=== PATIENT | female | born 1975 | race Caucasian/White ===

== ENCOUNTER 2021-05-20 10:40 | Emergency (ER) | payer SELFPAY ==
[2021-05-20 10:41] VITALS: BP 129/88; PULSE 78; RESP 18; TEMP 36.6; O2SAT 99; BMI 32.9
--- NOTE | 2021-05-20 11:00 | XR_ITS ---
PROCEDURE INFORMATION: Exam: XR Right Elbow Exam date and time: 05/20/2021 11:00 AM Age: 46 years old Clinical indication: Injury or trauma; Fall; Blunt trauma (contusions or hematomas); Elbow; Right TECHNIQUE: Imaging protocol: XR Right elbow. Views: 3 or more views. COMPARISON: No relevant prior studies available. FINDINGS: Bones/joints: Prominent anterior fat pad suggesting the possibility of an effusion. No definite fracture is identified. IMPRESSION: Prominent anterior fat pad suggesting the possibility of an effusion. No definite fracture is identified.
--- NOTE | 2021-05-20 11:00 | XR_ITS ---
PROCEDURE INFORMATION: Exam: XR Right Knee Exam date and time: 05/20/2021 11:00 AM Age: 46 years old Clinical indication: Injury or trauma; Fall; Blunt trauma; Knee; Right; Additional info: Fall, RT anterior knee pain TECHNIQUE: Imaging protocol: XR Right knee. Views: 3 views. COMPARISON: CR [id number] XR knee RT 3V 01/10/2018 10:40 AM FINDINGS: Bones/joints: Chronic changes involving the lateral femoral condyle and patella which may represent remote trauma. Patellofemoral osteophytes are present. Irregularity of the medial tibial plateau which appears to be chronic. IMPRESSION: No definite evidence of acute abnormality involving the right knee. Chronic changes as described above.
--- NOTE | 2021-05-20 11:00 | XR_ITS ---
PROCEDURE INFORMATION: Exam: XR Right Shoulder Exam date and time: 05/20/2021 11:00 AM Age: 46 years old Clinical indication: Injury or trauma; Fall; Blunt trauma (contusions or hematomas); Shoulder; Right TECHNIQUE: Imaging protocol: XR Right shoulder. Views: 2 or more views. COMPARISON: CR XR CHEST 2V 12/25/2019 7:29 PM FINDINGS: Bones/joints: Normal. Soft tissues: Normal. IMPRESSION: No acute findings involving the right shoulder.
--- NOTE | 2021-05-20 11:43 | HMH.EDUTC ---
[facility] [place] Clinical Impression: Right knee injury Qualifiers: Encounter type: initial encounter Qualified Code(s): S89.91XA - Unspecified injury of right lower leg, initial encounter Injury of right elbow Qualifiers: Encounter type: initial encounter Qualified Code(s): S59.901A - Unspecified injury of right elbow, initial encounter Right shoulder pain Qualifiers: Chronicity: acute Qualified Code(s): M25.511 - Pain in right shoulder Disposition: Home, Self-Care Condition on Discharge: Good Instructions: DI for Knee Pain Additional Instructions: Your Xrays were negative for fractures, but that does not rule out injuries to ligaments and tendons. Follow up with PCP if not improving for additional tests. Prescriptions: Naproxen [Naproxen 500mg tab] 500 mg PO BID 10 Days #20 tab Transmission Status: Pending to [facility] Referrals: Oscar Richardson APRN [Nurse Practitioner] - Forms: Work/School Release Time of Disposition: 12:22 Medical Decision Making - Samuel Inquiry Pt receiving controlled substance: No Vital Signs: 05/20/21 10:41 Temperature 97.9 F Temperature Source Oral Pulse Rate [Left Radial] 78 Respiratory Rate 18 Blood Pressure [Right Arm] 129/88 Blood Pressure Mean [Right Arm] 101 Blood Pressure Source [Right Arm] Automatic Cuff Blood Pressure Position [Right Arm] Sitting 02 Sat by Pulse Oximetry 99 Oxygen Delivery Method Room Air - Radiology Data #1 Image(s): Knee Image Reviewed: Yes I have reviewed radiologist's interpretation Preliminary Findings: Normal/NAD, No Fracture Seen PROCEDURE INFORMATION: Exam: XR Right Knee Exam date and time: 05/20/2021 11:00 AM Age: 46 years old Clinical indication: Injury or trauma; Fall; Blunt trauma; Knee; Right; Additional info: Fall, RT anterior knee pain TECHNIQUE: Imaging protocol: XR Right knee. Views: 3 views. COMPARISON: CR [id number] XR knee RT 3V 01/10/2018 10:40 AM FINDINGS: Bones/joints: Chronic changes involving the lateral femoral condyle and patella which may represent remote trauma. Patellofemoral osteophytes are present. Irregularity of the medial tibial plateau which appears to be chronic. IMPRESSION: No definite evidence of acute abnormality involving the right knee. Chronic changes as described above. #2 Image(s): Elbow Image Reviewed: Yes I have reviewed radiologist's interpretation Preliminary Findings: Normal/NAD, No Fracture Seen Age: 46 years old Clinical indication: Injury or trauma; Fall; Blunt trauma (contusions or hematomas); Elbow; Right TECHNIQUE: Imaging protocol: XR Right elbow. Views: 3 or more views. COMPARISON: No relevant prior studies available. FINDINGS: Bones/joints: Prominent anterior fat pad suggesting the possibility of an effusion. No definite fracture is identified. IMPRESSION: Prominent anterior fat pad suggesting the possibility of an effusion. No definite fracture is identified. #3 Image(s): Shoulder Image Reviewed: Yes I have reviewed radiologist's interpretation Preliminary Findings: Normal/NAD, No Fracture Seen Exam date and time: 05/20/2021 11:00 AM Age: 46 years old Clinical indication: Injury or trauma; Fall; Blunt trauma (contusions or hematomas); Shoulder; Right TECHNIQUE: Imaging protocol: XR Right shoulder. Views: 2 or more views. COMPARISON: CR XR CHEST 2V 12/25/2019 7:29 PM FINDINGS: Bones/joints: Normal. Soft tissues: Normal. IMPRESSION: No acute findings involving the right shoulder. [facility] [place] [facility] [place] - General Stated complaint: a/o right knee injury Time Seen by Provider: 05/20/21 11:43 Mode of Arrival: Ambulatory Source of Information: Patient Limitations: No Limitations Description of Symptoms (Recalled from Triage Doc. by RN): c/o right shoulder, elbow and knee pain after falling in a hole yesterday while walking HEENT Symptoms (Recalled from RN notes): No Resp Symp
[2021-05-20 12:28] VITALS: BP 129/88; PULSE 78; RESP 18; TEMP 36.6; O2SAT 99
== END 2021-05-20 12:29 | disposition home or self-care (01) ==
PROVIDERS: Emergency Provider Physician Assistant
DX: S89.91XA Unspecified injury of right lower leg, initial encounter (principal); S59.901A Unspecified injury of right elbow, initial encounter; W17.2XXA Fall into hole, initial encounter; Y92.89 Other specified places as the place of occurrence of the external cause; Z88.0 Allergy status to penicillin
CPT/HCPCS: 73030; 73080; 73562; 99202; G0463

== ENCOUNTER 2021-06-04 14:30 | Emergency (ER) | payer OTHER, SELFPAY ==
[2021-06-04 14:31] VITALS: BP 155/73; PULSE 87; RESP 18; TEMP 36.7; O2SAT 97; BMI 30.2
--- NOTE | 2021-06-04 14:44 | XR_ITS ---
PROCEDURE INFORMATION: Exam: XR Right Hand Exam date and time: 06/04/2021 2:44 PM Age: 46 years old Clinical indication: Injury or trauma; Other: Laceration; Hand; Right TECHNIQUE: Imaging protocol: XR Right hand. Views: 3 or more views. COMPARISON: CR XR ELBOW RT MIN 3V 05/20/2021 10:58 AM FINDINGS: Bones/joints: Oblique, minimally displaced fracture within the distal tuft 3rd digit. Soft tissues: No radiopaque foreign body. IMPRESSION: 1. Oblique, minimally displaced fracture within the distal tuft 3rd digit. 2. No radiopaque foreign body.
--- NOTE | 2021-06-04 16:00 | HMH.EDGENADL ---
ED Disposition Clinical Impression: Open fracture of phalanx of right middle finger Qualifiers: Encounter type: initial encounter Phalanx: distal Fracture alignment: nondisplaced Qualified Code(s): S62.662B - Nondisplaced fracture of distal phalanx of right middle finger, initial encounter for open fracture Nail avulsion, finger Qualifiers: Encounter type: initial encounter Qualified Code(s): S61.309A - Unspecified open wound of unspecified finger with damage to nail, initial encounter Disposition: Home, Self-Care Condition on Discharge: Good Instructions: DI for Laceration Repair Prescriptions: Hydrocod/Acet 5/325 mg [[place] 5/325mg tablet] 1 tab PO Q6HP PRN #12 tab PRN Reason: Moderate Pain Transmission Status: Sent to [facility] Sulfamethoxazole/Trimethoprim [Bactrim DS tablet] 1 each PO BID #14 tab Transmission Status: Pending to [facility] Referrals: Provider,MD Zack [Primary Care Provider] - Neville Rivera MD [Referring] - (Call in the morning) - Critical Care Critical Care Time: No Attestation: On 06/04/21, the high probability of a clinically significant, sudden or life threatening deterioration of the following system(s) required my full and direct attention, intervention and personal management. The time I documented below is in addition to time spent performing reported procedures but includes the following listed in this critical care notation. Medical Decision Making - Medical Records Medical records reviewed: Yes: I reviewed the patient's medical records. - Samuel Inquiry Pt receiving controlled substance: No Vital Signs: 06/04/21 14:31 Temperature 98.1 F Temperature Source Oral Pulse Rate [Right] 87 Respiratory Rate 18 Blood Pressure [Right Arm] 155/73 H Blood Pressure Mean [Right Arm] 100 02 Sat by Pulse Oximetry 97 Oxygen Delivery Method Room Air Orders (Tests/Meds): ED MEDICATIONS Discontinued Medications Generic Name Dose Route Start Last Admin Trade Name Freq PRN Reason Stop Dose Admin Ibuprofen 800 mg 06/04/21 14:44 Ibuprofen 400 Mg Tablet PO 06/04/21 14:45 ONCE ONE - Radiology Data #1 Image(s): Hand Image Reviewed: Yes I reviewed the patient's radiology results, Yes I reviewed the patient's radiology image, Yes I have reviewed radiologist's interpretation IMPRESSION: 1. Oblique, minimally displaced fracture within the distal tuft 3rd digit. 2. No radiopaque foreign body. - Reevaluation(s) Time: 16:05 Reevaluation #1: On reevaluation, patient is feeling better. She tolerated procedure well. We did have to remove the distal portion of the nailbed to see it was cracked in half. We did suture the majority back in place. Patient will need to follow-up with hand surgery within 48 hours. Patient provided antibiotics. Given strict return precautions. Verbalized understanding. Medical Decision Narrative: 46-year-old female presenting with injury to her right middle finger. I am concerned for open fracture. Patient does have dilation of the nail and will need to be removed. Imaging obtained. General Adult HPI - General Chief complaint: Wound/Laceration Stated complaint: a/0 06/04 cut tip of middle finger Time Seen by Provider: 06/04/21 14:35 Mode of Arrival: Family Vehicle Limitations: No Limitations Description of Symptoms (Recalled from ER Triage Doc. by RN): Patient c/o right hand middle finger laceration caused by a vegatable chopper. Patient has normal ROM in injured finger. Patient has bleeding controlled prior to arrival. Patient's capillary refill is less than 2 seconds upon assessment. - History of Present Illness HPI narrative: This is a 46-year-old female presented to the emergency department with some right hand pain. The patient states that she was at work when she hit her hand in a vaginal bulb sorter. She has a cut to the distal portion of her right middle finger.
[2021-06-04 16:35] VITALS: BP 135/84; PULSE 88; RESP 18; TEMP 36.6; O2SAT 98
--- NOTE | 2021-06-04 17:25 | PC.NURSE ---
After patient discharged, it was realized that patient never notified staff of workmans comp form. Patient called to be informed she could return tomorrow to have the form filed if the patient needs it. The number listed is not a valid number
== END 2021-06-04 16:55 | disposition home or self-care (01) ==
PROVIDERS: Emergency Provider Emergency Medicine
DX: S62.662B Nondisplaced fracture of distal phalanx of right middle finger, initial encounter for open fracture (principal); S61.312A Laceration without foreign body of right middle finger with damage to nail, initial encounter; Y93.G3 Activity, cooking and baking; Y99.0 Civilian activity done for income or pay
CPT/HCPCS: 12002; 73130; 99282

== ENCOUNTER 2021-09-27 16:17 | Emergency (ER) | payer SELFPAY ==
[2021-09-27 16:20] VITALS: BP 148/55; PULSE 74; RESP 28; TEMP 36.8; O2SAT 98; BMI 28.3
[2021-09-27 16:22] VITALS: BP 148/55; PULSE 74; RESP 28; TEMP 36.8; O2SAT 98; BMI 28.3
--- NOTE | 2021-09-27 17:14 | HMH.EDUTC ---
[facility] – [place] Dis[place] Clinical Impression: Cellulitis and abscess of other specified site Disposition: Home, Self-Care Condition on Discharge: Good Instructions: DI for Cellulitis -- Adult, DI for Skin Abscess Additional Instructions: *Start antibiotic(s) immediately and be sure to take as ordered for the FULL length of time although you may be feeling better or start to see improvement in the next 24-48 hours *Monitor closely. Outlined redness so that you can monitor easier. Follow up immediately for new or worsening symptoms including but not limited to redness, swelling, streaking from site fever or chills. *Warm compress with warm water 15 minutes 3-4 times day *Never squeeze or pop these on your own. Seek immediate medical attention next time this occurs *Monitor Temp. Tylenol every 4 hours as needed and ibuprofen every 6 hours as needed (as long as your primary care doctor has told you that it is ok to take both. For fever, aches, pain. ER if no less that 101 despite Tylenol and ibuprofen Follow up with your family doctor/primary care physician in the next 48-72 hours if no improvement Straight to ER if any worsening of symptoms or worsening of redness and swelling Follow up with Surgeons if no improvement for further treatment and evaluation Prescriptions: clindamycin HCL [Clindamycin HCl] 300 mg PO Q8H 10 Days #30 cap Transmission Status: [facility] Mupirocin Calcium [Mupirocin 2% Cream 15gm] 1 applicatio TP TID 10 Days #15 gm Transmission Status: [facility] Referrals: Provider,MD Zack [Primary Care Provider] - As needed Jac Lang MD [Staff Physician] - Jonathan Baugh MD [Staff Physician] - Forms: Work/School Release Time of Disposition: 17:26 Medical Decision Making - Samuel Inquiry Pt receiving controlled substance: No Saumel was queried for this patient: No Vital Signs: 09/27/21 16:20 09/27/21 16:22 09/27/21 17:36 Temperature 98.2 F 98.2 F 98.2 F Temperature Source Oral Oral Pulse Rate 74 Pulse Rate [Left] 74 74 Respiratory Rate 28 H 28 H 20 Blood Pressure 148/55 H Blood Pressure [Left Arm] 148/55 H 148/55 H Blood Pressure Mean [Left Arm] 86 86 Blood Pressure Source [Left Arm] Automatic Cuff Automatic Cuff Blood Pressure Position [Left Arm] Sitting Sitting 02 Sat by Pulse Oximetry 98 98 Oxygen Delivery Method Room Air Room Air Medical Decision Narrative: Discussed with patient and due to area being on side of abdomen recommended transfer to the ED for further work up and evaluation and patient advised that she didnt want to that she was scared and didnt have insurance and wanted to try antibiotics first area hard to the touch and patient would not let you touch it area marked for easy monitoring and patient made aware of risks and still declined transfer to the ED [facility] – [place] HPI - General Stated complaint: possible spider bite R side Time Seen by Provider: 09/27/21 17:14 Mode of Arrival: Ambulatory Source of Information: Patient Limitations: No Limitations Description of Symptoms (Recalled from Triage Doc. by RN): PATIENT C/O POSSIBLE SPIDER BITE TO RIGHT SIDE SINCE SATURDAY. REDNESS, WARMTH AND SWELLING NOTED AROUND AREA OF BITE. PATIENT ALSO C/O SOA SINCE THIS MORNING HEENT Symptoms (Recalled from RN notes): No Resp Symptoms (Recalled from RN notes): No Skin Symptoms (Recalled from RN notes): Yes MS Symptoms (Recalled from RN notes): No Functional Status (Recalled from RN notes): WNL - History of Present Illness Provider Complaint: Patient states that she got her Elijah tree out from storage and she packed it against her States that she noticed she had several scratches on her abdomen and thinks she may have gotten bitten by spider States that she has a sore hard area on her right side of abdomen that is warm to the touch States that today her pants was rubbing it so she came in to get it checked out Denies fever Denies f
[2021-09-27 17:36] VITALS: BP 148/55; PULSE 74; RESP 20; TEMP 36.8; O2SAT 98
== END 2021-09-27 17:40 | disposition home or self-care (01) ==
PROVIDERS: Emergency Provider Nurse Practitioner
DX: L03.311 Cellulitis of abdominal wall (principal); Z88.0 Allergy status to penicillin
CPT/HCPCS: 99202; G0463

== ENCOUNTER 2021-10-06 17:15 | Emergency (ER) | payer SELFPAY ==
[2021-10-06 17:18] VITALS: BP 162/74; PULSE 84; RESP 16; TEMP 36.6; O2SAT 96; BMI 31.1
[2021-10-06 18:00] VITALS: BP 151/70; PULSE 85; O2SAT 100
--- NOTE | 2021-10-06 18:17 | CT_ITS ---
PROCEDURE INFORMATION: Exam: CT Abdomen And Pelvis Without Contrast Exam date and time: 10/06/2021 6:17 PM Age: 46 years old Clinical indication: Other: Reddness and swelling at RT mid abdomen from possible spider bite; Additional info: Abdominal wall abscess RT mid abdomen TECHNIQUE: Imaging protocol: Computed tomography of the abdomen and pelvis without contrast. Total images: 302 Radiation optimization: All CT scans at this facility use at least one of these dose optimization techniques: automated exposure control; mA and/or kV adjustment per patient size (includes targeted exams where dose is matched to clinical indication); or iterative reconstruction. COMPARISON: CR XR CHEST 2V 12/25/2019 7:29 PM FINDINGS: Lungs: Mild atelectasis in the lung bases. Heart: Heart size normal. Mediastinal space: The visualized distal esophagus is largely contracted without gross abnormality. Liver: Normal contour. No mass lesions. No intrahepatic biliary ductal dilatation. Gallbladder and bile ducts: Normal. No calcified stones. No ductal dilation. Pancreas: Normal. No inflammatory changes or ductal dilation. Spleen: Granulomatous calcifications in the spleen without acute splenic abnormality. Adrenal glands: 2 x 1.5 cm left adrenal adenoma measuring 5 Hounsfield units average density. This does not require further assessment. Right adrenal gland is normal. Kidneys and ureters: No acute abnormalities. No hydronephrosis or hydroureter. There is mild hyperdensity in the bilateral renal pyramids suggesting medullary nephrocalcinosis. This can be seen with renal tubular acidosis or medullary sponge kidney. There are 2 small nonobstructive left renal stones measuring 2 mm and 1 mm. No ureteral stones. Stomach and bowel: The stomach is unremarkable. The small bowel is nondilated with no gross abnormality. No acute colonic abnormalities. Appendix: The appendix is normal in caliber and demonstrates no evidence of appendicitis. Intraperitoneal space: No free fluid or air. Vasculature: No acute process. No abdominal aortic aneurysm. Lymph nodes: No adenopathy. Urinary bladder: The urinary bladder is largely contracted without gross abnormality. Reproductive: Uterus unremarkable. Bilateral simple ovarian follicles measuring up to 1.8 cm on the right and 2.6 cm on the left. These are within physiologic range and do not require further assessment. Bones/joints: No acute osseous abnormalities. Moderate disc degenerative changes L3-L4. Chronic moderate superior endplate compression T12. Chronic mild superior endplate compression T11. Soft tissues: Localized skin thickening and subcutaneous edema/stranding in the right lower quadrant anterolateral subcutaneous fat consistent with the history of spider bite in the region. There is a small metallic marker present at the skin surface. No underlying foreign body. No fluid collections suggestive of abscess or hematoma. No intra-abdominal extension of inflammatory changes. IMPRESSION: 1. Small zone of skin thickening and underlying cellulitis or edema in the right lower quadrant anterolateral subcutaneous fat consistent with a history of spider bite in this region. No abscess or hematoma. No foreign body. No intra-abdominal extension of inflammatory changes. 2. Mild hyperdensity in the renal pyramids suggesting medullary nephrocalcinosis, with 2 small nonobstructive left renal stones. No ureteral stones or hydronephrosis. 3. Additional nonemergent findings detailed above. COMMENTS: 1. Consistent with the [employer]'s Incidental Findings Committee white paper (J Am Maya Radiol 2
[2021-10-06 18:29] VITALS: BP 138/90; PULSE 70; O2SAT 100
--- NOTE | 2021-10-06 18:52 | HMH.EDSKAF ---
ED Disposition Clinical Impression: Cellulitis Disposition: Home, Self-Care Condition on Discharge: Fair Instructions: DI for Skin Abscess Prescriptions: Doxycycline Hyclate [Doxycycline Hyclate 100mg Tablet] 100 mg PO BID #10 tab Transmission Status: Pending to [facility] Referrals: Provider,Referral, [Primary Care Provider] - - Critical Care Critical Care Time: No Attestation: On 10/06/21, the high probability of a clinically significant, sudden or life threatening deterioration of the following system(s) required my full and direct attention, intervention and personal management. The time I documented below is in addition to time spent performing reported procedures but includes the following listed in this critical care notation. Medical Decision Making - Medical Records Medical records reviewed: Yes: I reviewed the patient's medical records. - Samuel Inquiry Pt receiving controlled substance: No Samuel was queried for this patient: No Vital Signs: 10/06/21 17:18 10/06/21 18:00 10/06/21 18:29 Temperature 98 F Temperature Source Oral Pulse Rate 85 70 Pulse Rate [Radial] 84 Respiratory Rate 16 Blood Pressure 151/70 H 138/90 Blood Pressure [Right Arm] 162/74 H Blood Pressure Mean [Right Arm] 103 Blood Pressure Position [Right Arm] Sitting 02 Sat by Pulse Oximetry 96 100 100 Oxygen Delivery Method Room Air Room Air Room Air 10/06/21 19:01 10/06/21 19:30 Temperature Temperature Source Pulse Rate 67 75 Pulse Rate [Radial] Respiratory Rate Blood Pressure 151/71 H 160/78 H Blood Pressure [Right Arm] Blood Pressure Mean [Right Arm] Blood Pressure Position [Right Arm] 02 Sat by Pulse Oximetry 100 99 Oxygen Delivery Method Room Air Room Air - Lab Data Lab results reviewed: Yes: I reviewed the patient's lab results. Medical Decision Narrative: Patient is a 46-year-old female with no past medical history presenting to the ED with a spider bite. Patient is awake, alert, not in acute distress. Patient is medically stable, afebrile. Physical exam remarkable for mild area of erythema and fluctuance. Ultrasound performed and I&D performed. No purulent drainage noted only bloody drainage noted. CT abdomen pelvis without contrast performed remarkable for cellulitis no deep space abscess or extension into the abdomen. Patient's antibiotics changed from Clinda to Doxy. Patient stable for discharge. Patient given strict return precautions and follow-up instructions. Skin/Abscess/FB HPI - General Chief complaint: Skin/Abscess/Foreign Body Stated complaint: spider bite on stomach Time Seen by Provider: 10/06/21 17:30 Mode of Arrival: Ambulatory Limitations: No Limitations Description of Symptoms (Recalled from ER Triage Doc. by RN): to ed per pvt car with c/o spider bite to rt side abd. states seen in [facility] on 09/27 and given antibiotics but symptoms are getting worse. pt c/o nausea, vomiting, fever at home. - History of Present Illness HPI narrative: Patient is a 46-year-old female with no past medical history presenting to the ED with a spider bite. Patient states that she has had the spider bite on her abdomen for the past several days. Patient states that she was initially evaluated by a different provider and diagnosed with cellulitis and written for clindamycin. Patient states that despite being on the clindamycin she continues to have worsening symptoms, the spider bite has gotten bigger and states it hurts every time she moves. She is concerned that it has gotten deeper. She denies any abdominal pain, nausea, vomiting, fevers, chills. - Related Data Previous Rx's Medication Instructions Recorded Mupirocin Calcium [Mupirocin 2% 1 applicatio TP TID 10 Days #15 gm 09/27/21 Cream 15gm] clindamycin HCL [Clindamycin HCl] 300 mg PO Q8H 10 Days #30 cap 09/27/21 Doxycycline Hyclate [Doxycycline 100 mg PO BID #10 tab 10/06/21 Hyclate 100mg Tablet]
[2021-10-06 19:01] VITALS: BP 151/71; PULSE 67; O2SAT 100
[2021-10-06 19:30] VITALS: BP 160/78; PULSE 75; O2SAT 99
[2021-10-06 20:50] VITALS: BP 154/75; PULSE 72; RESP 16; TEMP 36.6; O2SAT 99
== END 2021-10-06 20:51 | disposition home or self-care (01) ==
PROVIDERS: Emergency Provider Emergency Medicine
DX: L03.311 Cellulitis of abdominal wall (principal)
CPT/HCPCS: 74176; 99282

== ENCOUNTER → 2021-10-27 14:39 | Outpatient (CLI) | payer OTHER, SELFPAY | PROVIDERS: Visit Provider Nurse Practitioner | DX: U07.1 COVID-19 (principal) | CPT/HCPCS: C9803; U0003; U0005 ==

== ENCOUNTER 2022-02-12 16:14 | Emergency (ER) | payer SELFPAY ==
[2022-02-12 16:15] VITALS: BP 163/67; PULSE 88; RESP 16; TEMP 37.3; O2SAT 100; BMI 31.1
--- NOTE | 2022-02-12 18:28 | HMH.EDUTC ---
[facility] [place] Clinical Impression: Plantar fasciitis, bilateral Disposition: Home, Self-Care Condition on Discharge: Good Instructions: Plantar Fasciitis, DI for Plantar Fasciitis Additional Instructions: Rest the extremities, Elevate the extremity as tolerated while you are resting. Take the medication as directed Follow up with Dr. Johnson (podiatry). I put in a referral but you need to call his office and schedule an appointment. Follow up with your regular doctor. GO TO THE ER FOR ANY WORSENING SYMPTOMS Prescriptions: methylPREDNISolone [Medrol] 4 mg PO DIRECTED 6 Days #21 packet Transmission Status: Received by [employer] Referrals: Provider,Referral, [Primary Care Provider] - Time of Disposition: 18:59 Medical Decision Making - Medical Records Medical records reviewed: No: I reviewed the patient's medical records. - Samuel Inquiry Pt receiving controlled substance: No Vital Signs: 02/12/22 16:15 02/12/22 19:35 Temperature 99.1 F 99.1 F Temperature Source Oral Pulse Rate 88 Pulse Rate [Right] 88 Respiratory Rate 16 16 Blood Pressure 163/67 H Blood Pressure [Right Arm] 163/67 H Blood Pressure Mean [Right Arm] 99 Blood Pressure Source [Right Arm] Automatic Cuff Blood Pressure Position [Right Arm] Sitting 02 Sat by Pulse Oximetry 100 Oxygen Delivery Method Room Air [facility] [place] HPI - General Stated complaint: both feet red&burning Time Seen by Provider: 02/12/22 18:28 Mode of Arrival: Ambulatory Source of Information: Patient Limitations: No Limitations Description of Symptoms (Recalled from Triage Doc. by RN): pt advises that her feet are burning and it is painful to walk on them. Advises it has been ongoing for 2 months HEENT Symptoms (Recalled from RN notes): No Resp Symptoms (Recalled from RN notes): No Skin Symptoms (Recalled from RN notes): No MS Symptoms (Recalled from RN notes): Yes (bilateral foot pain) Functional Status (Recalled from RN notes): na - History of Present Illness Provider Complaint: She states that for the past 2 weeks or so, she has had pain in the bottom of both feet. It is worse when she first stands up in the mornings. Her left foot hurts more toward the base of her toes. Her right foot hurts more around her heel and the middle of the bottom of her foot. - Related Data Previous Rx's Medication Instructions Recorded Mupirocin Calcium [Mupirocin 2% 1 applicatio TP TID 10 Days #15 gm 09/27/21 Cream 15gm] clindamycin HCL [Clindamycin HCl] 300 mg PO Q8H 10 Days #30 cap 09/27/21 Doxycycline Hyclate [Doxycycline 100 mg PO BID #10 tab 10/06/21 Hyclate 100mg Tablet] methylPREDNISolone [Medrol] 4 mg PO DIRECTED 6 Days #21 02/12/22 packet Allergies Allergy/AdvReac Type Severity Reaction Status Date / Time amoxicillin [AMOXICILLIN] Allergy Intermediate I-HIVES Verified 01/10/18 10:19 Penicillins Allergy Verified 01/10/18 10:19 - Worker's Comp Is this a Worker's Comp case?: No [facility] History - Hepatitis A Screen Attestation statement:: This patient has been screened for Hepatitis A risk factors. I have reviewed the patient's past medical history: Yes Medical History: Denies:: Cancer, Diabetes Mellitus Type 1, Diabetes Mellitus Type 2, Hypertension, MRSA Laterality Cases: Bilateral: Tonsillectomy Other Surgeries: Yes: Tubal Ligation, Other (wisdom teeth) Amputation: No Fractures: No - Social History Smoking Status: Never smoker Alcohol Intake: never Occupational Status: employed Housing: house ROS Obtained: Yes All systems reviewed & no additional complaints - Constitutional Constitutional: Denies chills, Denies fever(s) - Musculoskeletal Musculoskeletal: Reports as per HPI - Integumentary/Breasts Skin/Breast: Denies redness, Denies rash, Denies wounds - Neurologic Neurologic: Denies tingling/numbness/burning sensations Physical Exam - General General appearance: alert, in no tl
[2022-02-12 19:35] VITALS: BP 163/67; PULSE 88; RESP 16; TEMP 37.3
== END 2022-02-12 19:36 | disposition home or self-care (01) ==
PROVIDERS: Emergency Provider Nurse Practitioner Family
DX: M72.2 Plantar fascial fibromatosis (principal)
CPT/HCPCS: 99212; G0463

== ENCOUNTER 2025-02-04 19:35 | Emergency (ER) | payer MEDICAID, SELFPAY ==
[2025-02-04 19:42] VITALS: BP 140/92; PULSE 71; RESP 18; TEMP 37; O2SAT 100; BMI 25.7
--- NOTE | 2025-02-04 19:49 | CT_ITS ---
PROCEDURE INFORMATION: Exam: CTA Head With Contrast, Arteriography Exam date and time: 02/04/2025 8:57 PM Age: 49 years old Clinical indication: Injury or trauma; Additional info: Trauma, critical injury suspected TECHNIQUE: Imaging protocol: Computed tomographic angiography of the head with contrast. Exam focused on the arteries. 3D rendering (Not supervised by radiologist): MIP and/or 3D reconstructed images were created by the technologist. Radiation optimization: All CT scans at this facility use at least one of these dose optimization techniques: automated exposure control; mA and/or kV adjustment per patient size (includes targeted exams where dose is matched to clinical indication); or iterative reconstruction. Contrast material: ISOVUE; Contrast volume: 80 ml; Contrast route: INTRAVENOUS (IV); COMPARISON: CT HEAD/BRAIN WO CON 02/04/2025 8:47 PM FINDINGS: ANTERIOR CIRCULATION: Right internal carotid artery: Minimal calcification involving the right carotid siphon without stenosis. Right middle cerebral artery: No occlusion or significant stenosis. No aneurysm. Right anterior cerebral artery: No occlusion or significant stenosis. No aneurysm. Left internal carotid artery: Minimal calcification involving the left carotid siphon without stenosis. Left middle cerebral artery: No occlusion or significant stenosis. No aneurysm. Left anterior cerebral artery: No occlusion or significant stenosis. No aneurysm. POSTERIOR CIRCULATION: Right vertebral artery: No occlusion or significant stenosis. No aneurysm. Left vertebral artery: Left vertebral artery is dominant. Basilar artery: No occlusion or significant stenosis. No aneurysm. Right posterior cerebral artery: No occlusion or significant stenosis. No aneurysm. Left posterior cerebral artery: No occlusion or significant stenosis. No aneurysm. IMPRESSION: No acute vascular pathology.
--- NOTE | 2025-02-04 19:49 | CT_ITS ---
PROCEDURE INFORMATION: Exam: CT Head Without Contrast Exam date and time: 02/04/2025 8:47 PM Age: 49 years old Clinical indication: Injury or trauma; Additional info: Trauma, critical injury suspected TECHNIQUE: Imaging protocol: Computed tomography of the head without contrast. Radiation optimization: All CT scans at this facility use at least one of these dose optimization techniques: automated exposure control; mA and/or kV adjustment per patient size (includes targeted exams where dose is matched to clinical indication); or iterative reconstruction. COMPARISON: No relevant prior studies available. FINDINGS: Brain: Normal. No hemorrhage. Unremarkable white matter. No mass effect. Cerebral ventricles: No ventriculomegaly. Paranasal sinuses: Visualized sinuses are unremarkable. No fluid levels. Mastoid air cells: Visualized mastoid air cells are well aerated. Bones: Unremarkable. No acute fracture. Soft tissues: Unremarkable. IMPRESSION: No acute intracranial abnormality.
--- NOTE | 2025-02-04 19:49 | CT_ITS ---
PROCEDURE INFORMATION: Exam: CT Lumbar Spine Without Contrast Exam date and time: 02/04/2025 8:54 PM Age: 49 years old Clinical indication: Injury or trauma; Additional info: Trauma, critical injury suspected TECHNIQUE: Imaging protocol: Computed tomography of the lumbar spine without contrast. Radiation optimization: All CT scans at this facility use at least one of these dose optimization techniques: automated exposure control; mA and/or kV adjustment per patient size (includes targeted exams where dose is matched to clinical indication); or iterative reconstruction. COMPARISON: 1. CT THORACIC SPINE WO CON 02/04/2025 8:[address] ABDOMEN PELVIS WO CON 10/06/2021 6:33 PM FINDINGS: Bones/joints: Compression deformity of T12 appears similar to comparison. Anatomic alignment of the lumbar spine. Cortical irregularity of the articular endplates at the L3/L4 level with associated intervertebral vacuum disc phenomena. Transitional lumbosacral anatomy with hypertrophy of the right L5 transverse process and pseudoarticulation with the sacrum. Multilevel degenerative changes manifested as endplate osteophyte formation, facet arthropathy, and intervertebral disc height loss. Noncompressive disc protrusions at the L2/L3, L3/L4, L4/L5. Soft tissues: Unremarkable. IMPRESSION: 1. Cortical irregularity about the L3/L4 articulating endplates is favored to represent degenerative change, if clinical concern persists consider further evaluation with MRI. 2. Other findings as above.
--- NOTE | 2025-02-04 19:49 | XR_ITS ---
PROCEDURE INFORMATION: Exam: XR Left Tibia and Fibula Exam date and time: 02/04/2025 8:25 PM Age: 49 years old Clinical indication: Injury or trauma; Fall; Other: Pain; Additional info: Fall, injury TECHNIQUE: Imaging protocol: Radiologic exam of the left tibia and fibula. Views: 2 views. COMPARISON: No relevant prior studies available. FINDINGS: Bones/joints: A possible lateral tibial plateau fracture noted. No other acute fracture. Soft tissues: Normal. IMPRESSION: Potential lateral tibial plateau fracture incompletely assessed with this study. Advise x-ray of the left knee.
--- NOTE | 2025-02-04 19:49 | CT_ITS ---
PROCEDURE INFORMATION: Exam: CT Thoracic Spine Without Contrast Exam date and time: 02/04/2025 8:52 PM Age: 49 years old Clinical indication: Injury or trauma; Additional info: Trauma, critical injury suspected TECHNIQUE: Imaging protocol: Computed tomography of the thoracic spine without contrast. Radiation optimization: All CT scans at this facility use at least one of these dose optimization techniques: automated exposure control; mA and/or kV adjustment per patient size (includes targeted exams where dose is matched to clinical indication); or iterative reconstruction. COMPARISON: 1. CT ABDOMEN PELVIS WO CON 10/06/2021 6:[address] THORACIC SPINE WO CON 02/04/2025 8:52 PM FINDINGS: Limitations: The examination is limited by patient motion. Bones/joints: There is an anterior compression deformity of T11 and T12 which appear similar to comparison. Remaining vertebral body heights are maintained. No acute fracture. Multilevel degenerative changes of the spine manifested as endplate osteophyte formation and facet arthropathy. Soft tissues: Unremarkable. IMPRESSION: 1. Compression deformities of T11 and T12 appears similar to comparison CT 02/04/2021, if clinical concern persists consider further evaluation with MRI. 2. Other findings as above.
--- NOTE | 2025-02-04 19:49 | CT_ITS ---
PROCEDURE INFORMATION: Exam: CTA Abdomen and Pelvis With Contrast Exam date and time: 02/04/2025 9:01 PM Age: 49 years old Clinical indication: Injury or trauma; Additional info: Trauma, critical injury suspected TECHNIQUE: Imaging protocol: Computed tomographic angiography of the abdomen and pelvis with contrast. Exam focused on the arteries. 3D rendering (Not supervised by radiologist): MIP and/or 3D reconstructed images were created by the technologist. Radiation optimization: All CT scans at this facility use at least one of these dose optimization techniques: automated exposure control; mA and/or kV adjustment per patient size (includes targeted exams where dose is matched to clinical indication); or iterative reconstruction. Contrast material: ISOVUE; Contrast volume: 80 ml; Contrast route: INTRAVENOUS (IV); COMPARISON: CT ABDOMEN PELVIS WO CON 10/06/2021 6:33 PM FINDINGS: Diaphragm: See same day CT chest for supradiaphragmatic findings. Aorta: No aortic aneurysm. No aortic dissection. Celiac trunk and mesenteric arteries: No occlusion or significant stenosis. Renal arteries: No occlusion or significant stenosis. Right iliac arteries: No occlusion or significant stenosis. Left iliac arteries: No occlusion or significant stenosis. Liver: The liver is mildly enlarged. Gallbladder and biliary ducts: Suggestion of gallbladder sludge. No intra or extrahepatic biliary ductal dilation. Pancreas: The pancreas is unremarkable. Spleen: The spleen is unremarkable. Adrenal glands: 1.8 cm left adrenal nodule, unchanged. The right adrenal gland is unremarkable. Kidneys and ureters: The kidneys enhance symmetrically without hydronephrosis. Simple appearing renal cysts within the left kidney. The ureters have normal course and caliber without stone. Stomach and bowel: The stomach is normal. The small and large bowel have normal course and caliber. No evidence of bowel obstruction. No pericolonic inflammatory stranding. Appendix: The appendix is normal. Intraperitoneal space: No free air. No significant fluid collection. Lymph nodes: No enlarged lymph nodes. Urinary bladder: The bladder is normal without focal wall thickening. Reproductive: Nabothian cysts. Uterus is unremarkable. There is a 2.5 cm left ovarian cyst. Bones/joints: Multilevel degenerative type changes of the spine. No acute osseous abnormality. Unchanged compression deformity of T11 and T12. Osteoarthritic type changes of bilateral femoroacetabular joints. Soft tissues: 2.1 x 1.6 cm soft tissue density along the right gluteal cleft. IMPRESSION: 1. No acute intra-abdominal/pelvic visceral injury. 2. No large vessel occlusion or aneurysm. 3. No acute fracture. 4. There is a 2.1 x 1.6 cm soft tissue density along the right gluteal cleft and raises concern for perianal abscess. Recommend correlation with physical exam. 5. Other findings as above.
--- NOTE | 2025-02-04 19:49 | CT_ITS ---
PROCEDURE INFORMATION: Exam: CT Cervical Spine Without Contrast Exam date and time: 02/04/2025 8:50 PM Age: 49 years old Clinical indication: Injury or trauma; Additional info: Trauma, critical injury suspected TECHNIQUE: Imaging protocol: Computed tomography of the cervical spine without contrast. Radiation optimization: All CT scans at this facility use at least one of these dose optimization techniques: automated exposure control; mA and/or kV adjustment per patient size (includes targeted exams where dose is matched to clinical indication); or iterative reconstruction. COMPARISON: CT HEAD/BRAIN WO CON 02/04/2025 8:47 PM FINDINGS: Bones: No evident fracture. Degenerative changes of the C-spine most pronounced at C4-C5 through C6-C7. Otherwise unremarkable CT of the C-spine. Alignment and vertebral body heights are intact. Lungs: Lung apices are normal. Soft tissues: Unremarkable. IMPRESSION: Degenerative changes. No acute abnormality.
--- NOTE | 2025-02-04 19:49 | CT_ITS ---
PROCEDURE INFORMATION: Exam: CTA Neck With Contrast Exam date and time: 02/04/2025 8:57 PM Age: 49 years old Clinical indication: Injury or trauma; Additional info: Trauma, critical injury suspected TECHNIQUE: Imaging protocol: Computed tomographic angiography of the neck with contrast. Exam focused on the cervical segments of the vasculature. 3D rendering (Not supervised by radiologist): MIP and/or 3D reconstructed images were created by the technologist. Radiation optimization: All CT scans at this facility use at least one of these dose optimization techniques: automated exposure control; mA and/or kV adjustment per patient size (includes targeted exams where dose is matched to clinical indication); or iterative reconstruction. Contrast material: ISOVUE; Contrast volume: 80 ml; Contrast route: INTRAVENOUS (IV); COMPARISON: CT CERVICAL SPINE WO CON 02/04/2025 8:50 PM FINDINGS: Limitations: Limited by artifact arising from metallic dental hardware/dental amalgam. Right common carotid artery: No stenosis. No dissection or occlusion. Right internal carotid artery: No stenosis of the extracranial segment. No dissection or occlusion. Right external carotid artery: No occlusion or stenosis of the origin. Left common carotid artery: No stenosis. No dissection or occlusion. Left internal carotid artery: No stenosis of the extracranial segment. No dissection or occlusion. Left external carotid artery: No occlusion or stenosis of the origin. Right vertebral artery: No stenosis. No dissection or occlusion. Left vertebral artery: Left vertebral artery is dominant. Soft tissues: Normal. No significant soft tissue swelling. Bones/joints: Cervical spine is better evaluated on dedicated exam. IMPRESSION: No acute vascular pathology. REFERENCES: NASCET CRITERIA. The degree of stenosis in the cervical segment of the internal carotid artery is based on NASCET criteria. Normal is no stenosis. Mild is less than 50% stenosis. Moderate is 50-69% stenosis. Severe is 70% to 99% stenosis. Total occlusion is no detectable patent lumen.
--- NOTE | 2025-02-04 19:49 | CT_ITS ---
PROCEDURE INFORMATION: Exam: CTA Chest With Contrast Exam date and time: 02/04/2025 9:01 PM Age: 49 years old Clinical indication: Injury or trauma; Additional info: Trauma, critical injury suspected TECHNIQUE: Imaging protocol: Computed tomographic angiography of the chest with contrast. Exam focused on the arteries. 3D rendering (Not supervised by radiologist): MIP and/or 3D reconstructed images were created by the technologist. Radiation optimization: All CT scans at this facility use at least one of these dose optimization techniques: automated exposure control; mA and/or kV adjustment per patient size (includes targeted exams where dose is matched to clinical indication); or iterative reconstruction. Contrast material: ISOVUE; Contrast volume: 80 ml; Contrast route: INTRAVENOUS (IV); COMPARISON: 1. CR XR CHEST 2V 12/25/2019 7:[address] ABDOMEN PELVIS WO CON 10/06/2021 6:33 PM FINDINGS: Pulmonary arteries: No pulmonary emboli. Aorta: No aortic aneurysm. No aortic dissection. Thyroid: The thyroid gland is normal. Lungs: No focal consolidation. 4 mm intrafissural lymph 0node within the left fissure. Pleural spaces: No pneumothorax. No pleural effusion. Heart: Mild cardiomegaly. No pericardial effusion. Lymph nodes: No enlarged lymph nodes. Intraperitoneal space: See same day CT abdomen pelvis for subdiaphragmatic findings. Bones/joints: Multilevel degenerative type changes of the spine. No acute osseous abnormality. Unchanged compression deformities of T11 and T12. Soft tissues: Unremarkable. IMPRESSION: 1. No acute intrathoracic visceral injury. 2. No acute fracture. 3. Other findinintrgs as above.
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
[2025-02-04 19:56] VITALS: BP 150/68; PULSE 83; O2SAT 100
[2025-02-04 20:00] VITALS: BP 140/62; PULSE 75; O2SAT 97
[2025-02-04] MEDS: LACTATED RINGERS 1000ML 1,000 ML 999 ML IV (20:15)
[2025-02-04 20:19] LABS: Basophils % 0.5 % (0.1-2.0); Eosinophils # 0.1 Kmm3 (0.0-0.4); Eosinophils % 0.6 % (0.1-12.0); Hemoglobin 10.8 g/dL (12.2-16.2); Lymphocytes # 1.5 K/mm3 (0.7-4.5); Lymphocytes % 17.5 % (10-50); Mean Corpuscular HGB Conc 30.9 g/dL (31.8-35.4); Mean Corpuscular Hemoglobin 24.5 pg (27.0-31.2); Mean Corpuscular Volume 79.4 fl (81-99); Mean Platelet Volume 11.9 fl (7.4-10.4); Monocytes # 0.5 K/mm3 (0.1-1.0); Monocytes % 6.4 % (1.7-9.3); Neutrophils # 6.4 K/mm3 (1.8-7.8); Neutrophils % 74.8 % (37.0-80.0); Nucleated Red Blood Cells # 0 10^3/uL; Nucleated Red Blood Cells % 0 %; Platelet Count 235 K/mm3 (142-424); Red Blood Count 4.41 M/mm3 (4.20-5.40); Red Cell Distribution Width-SD 43.3 fL; White Blood Count 8.5 K/mm3 (4.8-10.8)
[2025-02-04 20:29] LABS: Activated Partial Thrombo Time 24.2 seconds (22.8-30.6); INR 0.97 (0.9-1.1); Prothrombin Time 10.9 seconds (10.1-12.5)
[2025-02-04 20:30] VITALS: BP 136/76; PULSE 76; O2SAT 96
[2025-02-04 20:33] LABS: Alanine Aminotransferase 14 U/L (12-78); Albumin Level 4.4 g/dl (3.5-5.0); Albumin/Globulin Ratio 1.3 (1.1-1.8); Alkaline Phosphatase 82 U/L (38-126); Anion Gap 10.8 mEq/L (5-15); Aspartate Amino Transferase 21 U/L (14-36); Bilirubin,Total 0.5 mg/dl (0.2-1.3); Blood Urea Nitrogen 12 mg/dl (7-17); Calcium 9.1 mg/dl (8.4-10.2); Carbon Dioxide 26 mmol/L (22.0-30.0); Chloride 105 mmol/L (98-107); Creatinine Clearance Estimated 119 mL/min (50-200); Estimated Glomerular Filt Rate 105 ml/min (>60); GFR (African American) 128 ML/MIN (>60); Globulin 3.5 g/dL (1.3-3.2); Glucose 104 mg/dl (74-100); Lipase 53 U/L (23-300); Potassium 3.8 mmoL/L (3.5-5.1); Sodium 138 mmol/L (136-145); Total Protein,Serum 7.9 g/dl (6.3-8.2)
[2025-02-04] MEDS: SODIUM CHLORIDE 0.9% 10ML SYR (RAD ONLY) 10 ML IV (21:04)
[2025-02-04] MEDS: 0.9 % SODIUM CHLORIDE 50 ML VIAL 100 ML IV (21:04)
[2025-02-04] MEDS: IOPAMIDOL-370 (76%);100ML BOTTLE 160 ML IV (21:04)
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
[2025-02-04 21:31] VITALS: BP 138/53; PULSE 81; O2SAT 98
[2025-02-04 22:32] VITALS: BP 154/86; PULSE 72; RESP 18; TEMP 36.9; O2SAT 98
== END 2025-02-04 22:34 | disposition home or self-care (01) ==
PROVIDERS: Emergency Provider Student in an Organized Health Care Education/Training Program; PCP Nurse Practitioner Family
DX: S82.142A Displaced bicondylar fracture of left tibia, initial encounter for closed fracture (principal); S36.69XA Other injury of rectum, initial encounter; W19.XXXA Unspecified fall, initial encounter
CPT/HCPCS: 70450; 70496; 70498; 71275; 72125; 72128; 72131; 73590; 73700; 74174; 80053; 83690; 85025; 85610; 85730; 96360; 99291; J7120; Q9967

== ENCOUNTER 2025-04-20 15:49 | Inpatient (IN) | payer MEDICAID, SELFPAY ==
[2025-04-20] VITALS (10 sets, daily range): BP systolic 130–165; BP diastolic 79–100; PULSE 58–92; RESP 15–23; TEMP 36.7–37.2; O2SAT 97–100; BMI 27.4; BMI 30.3
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
[2025-04-20] MEDS: KETOROLAC 30MG/ML VIAL 15 MG IV (16:57)
[2025-04-20] MEDS: LACTATED RINGERS 1000ML 1,000 ML 999 ML IV ×2 (16:58→17:45)
[2025-04-20 17:00] LABS: Hematocrit 31.8 % (37.0-47.0); Hemoglobin 9.9 g/dL (12.2-16.2); Immature Granulocytes % 0.3 %; Mean Corpuscular HGB Conc 31.1 g/dL (31.8-35.4); Mean Corpuscular Hemoglobin 24.1 pg (27.0-31.2); Mean Corpuscular Volume 77.4 fl (81-99); Nucleated Red Blood Cells % 0 %; Platelet Count 287 K/mm3 (142-424); Red Blood Count 4.11 M/mm3 (4.20-5.40); Red Cell Distribution Width-SD 46.8 fL; White Blood Count 11.6 K/mm3 (4.8-10.8)
--- NOTE | 2025-04-20 17:00 | PC.NURSE ---
Patient administered medication as per the MAR, verification done by patient bracelet, also verified allergies.
[2025-04-20 17:07] LABS: Albumin Level 4.3 g/dl (3.5-5.0); Chloride 104 mmol/L (98-107); Sodium 137 mmol/L (136-145)
[2025-04-20 17:10] LABS: Alanine Aminotransferase 37 U/L (12-78); Albumin/Globulin Ratio 1.3 (1.1-1.8); Alkaline Phosphatase 78 U/L (38-126); Anion Gap 12.0 mEq/L (5-15); Aspartate Amino Transferase 57 U/L (14-36); Bilirubin,Total 0.5 mg/dl (0.2-1.3); Blood Urea Nitrogen 15 mg/dl (7-17); Calcium 9.6 mg/dl (8.4-10.2); Carbon Dioxide 24 mmol/L (22.0-30.0); Creatine Kinase 1528 U/L (30-135); Creatinine Clearance Estimated 101 mL/min (50-200); Creatinine,Serum 0.70 mg/dl (0.52-1.04); Estimated Glomerular Filt Rate 88 ml/min (>60); GFR (African American) 106 ML/MIN (>60); Globulin 3.4 g/dL (1.3-3.2); Glucose 108 mg/dl (74-100); Total Protein,Serum 7.7 g/dl (6.3-8.2)
[2025-04-20 17:16] LABS: Acetaminophen < 10 ug/ml (10-30); Salicylate < 1.0 mg/dL (2.0-20.0)
[2025-04-20 17:17] LABS: Potassium 3.0 mmoL/L (3.5-5.1)
[2025-04-20 17:26] LABS: Microscopic, Urine URINE MICROSCOPIC (MICROSCOPIC)
[2025-04-20 17:37] LABS: Bilirubin,Urine Negative (Negative); Color,Urine YELLOW (Yellow); Glucose,Urine (UA) Negative (Negative); Ketones,Urine TRACE (Negative); Leukocyte Esterase,Urine 1+ (Negative); PH,Urine 6.0 (5.0-8.5); Protein,Urine 2+ (Negative); Specific Gravity, Urine >= 1.030 (1.005-1.030); Urobilinogen,Urine 0.2 EU/dl (0.2)
[2025-04-20] MEDS: POTASSIUM CHLORIDE 20MEQ TAB 40 MEQ PO (17:44)
[2025-04-20 17:54] LABS: Barbiturates Screen,Urine Negative ng/ml (<200)
[2025-04-20 17:55] LABS: Benzodiazepines Screen,Urine Negative ng/ml (<200)
[2025-04-20 17:58] LABS: Methadone Screen,Urine Negative ng/ml (<300)
[2025-04-20 17:59] LABS: Opiate Screen,Urine Negative ng/ml (<300); Phencyclidine Screen,Urine Negative ng/ml (<25)
[2025-04-20 18:02] LABS: WBC,Urine 50-100 #/hpf (0-3)
[2025-04-20 18:03] LABS: Amorphous Sediment,Urine 1+ /lpf; Bacteria,Urine 3+ /lpf; Mucus,Urine 2+ /lpf; Squamous Epithelial Cell,Urine 20-50 #/hpf (0-5)
[2025-04-20 18:16] LABS: Hepatitis C Ab Qual. W/ RFX NEGATIVE (Negative)
[2025-04-20 18:22] LABS: Amphetamine/Metha Screen,Urine Positive ng/ml (<1000)
[2025-04-20] MEDS: 0.9 % SODIUM CHLORIDE 1000ML 1,000 ML 999 ML IV (19:33)
--- NOTE | 2025-04-20 19:57 | PC.NURSE ---
Report called to NILDA May
--- NOTE | 2025-04-20 20:26 | PC.NURSE ---
PT arrived to floor from ED via wheelchair at 2019
[2025-04-20] MEDS: HYDROCODONE/APAP 5/325 MG TABLET 1 TAB PO (21:21)
[2025-04-20] MEDS: 0.9 % SODIUM CHLORIDE 1000ML 1,000 ML 150 ML IV (21:22)
--- NOTE | 2025-04-20 21:35 | PC.WOUNDNOTE ---
right calf left calf right wrist
--- NOTE | 2025-04-20 21:36 | PC.WOUNDNOTE ---
left forearm left thigh left thigh
--- NOTE | 2025-04-20 21:58 | PC.NURSE ---
Pt declined taking any home medications.
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
[2025-04-21] VITALS: BP 153/70; PULSE 63; RESP 16; TEMP 36.3; O2SAT 97
[2025-04-21 04:00] VITALS: BP 140/77; PULSE 62; TEMP 36.6; O2SAT 98; BMI 30.3
[2025-04-21] MEDS: 0.9 % SODIUM CHLORIDE 1000ML 1,000 ML 150 ML IV ×3 (04:01→22:30)
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
[2025-04-21] MEDS: HYDROCODONE/APAP 5/325 MG TABLET 1 TAB PO (05:32)
[2025-04-21 07:05] LABS: Hematocrit 29.1 % (37.0-47.0); Immature Granulocytes % 0.2 %; Mean Corpuscular HGB Conc 28.5 g/dL (31.8-35.4); Mean Corpuscular Hemoglobin 23.0 pg (27.0-31.2); Mean Corpuscular Volume 80.6 fl (81-99); Nucleated Red Blood Cells % 0 %; Platelet Count 194 K/mm3 (142-424); Red Blood Count 3.61 M/mm3 (4.20-5.40); Red Cell Distribution Width-SD 48.9 fL; White Blood Count 5.7 K/mm3 (4.8-10.8)
[2025-04-21 07:19] LABS: Anion Gap 12.1 mEq/L (5-15); Blood Urea Nitrogen 10 mg/dl (7-17); Calcium 8.5 mg/dl (8.4-10.2); Carbon Dioxide 23 mmol/L (22.0-30.0); Chloride 106 mmol/L (98-107); Creatine Kinase 1422 U/L (30-135); Creatinine Clearance Estimated 130 mL/min (50-200); Creatinine,Serum 0.60 mg/dl (0.52-1.04); Estimated Glomerular Filt Rate 105 ml/min (>60); GFR (African American) 127 ML/MIN (>60); Glucose 119 mg/dl (74-100); Potassium 3.1 mmoL/L (3.5-5.1); Sodium 138 mmol/L (136-145)
[2025-04-21 07:21] LABS: Hemoglobin 8.3 g/dL (12.2-16.2)
[2025-04-21 08:00] VITALS: BP 131/72; PULSE 66; RESP 19; TEMP 36.6; O2SAT 97
[2025-04-21 10:11] LABS: Magnesium 1.8 mg/dl (1.6-2.3)
[2025-04-21] MEDS: POTASSIUM CHLORIDE 20MEQ TAB 40 MEQ PO ×3 (11:58→18:25)
[2025-04-21] MEDS: MUPIROCIN 2% OINTMENT 22GM TUBE TP ×2 (12:00→20:12)
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
[2025-04-21 16:00] VITALS: BP 132/73; PULSE 66; RESP 19; O2SAT 99
--- NOTE | 2025-04-21 17:59 | PC.NURSE ---
Pt is AOx4. She is on RA. Abrasions, scratches, and bruises are noted all over her body. Pt's potassium was low, MD notified and electrolyte protocol was initiated PO TID. She has taken two doses on our shift with one more on shift coordinator. She is very [place]. Pt has rested most of the day. Pt did have a couple loose stools throughout the day. Behavioral Health did consult with her. Waiting to find placement for her before DC. Pt has been ambulating today with standby assist, she has not been using the walker the last half of the shift.
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
[2025-04-21 20:00] VITALS: BP 149/90; PULSE 78; RESP 18; TEMP 36.5; O2SAT 99
[2025-04-22] VITALS: BP 152/85; PULSE 82; RESP 20; TEMP 37; O2SAT 99
[2025-04-22 04:00] VITALS: BP 140/67; PULSE 66; RESP 14; TEMP 36.8; O2SAT 98; BMI 30.3
--- NOTE | 2025-04-22 04:55 | PC.NURSE ---
Ice water passed, trash and linens emptied, bedside table cleaned.
--- NOTE | 2025-04-22 06:54 | PC.NURSE ---
abx oint applied to wounds at beginning of shift. patient has done well tonight, a/o x4, ambulating to toilet frequently, refuses walker, wants to be independent. patient has had some incont episodes of urine and loose stool, required one linen change r/t incont. daughter visited for a couple hours last night.
[2025-04-22 07:34] LABS: Hematocrit 29.7 % (37.0-47.0); Hemoglobin 9.0 g/dL (12.2-16.2); Immature Granulocytes % 0.3 %; Mean Corpuscular HGB Conc 30.3 g/dL (31.8-35.4); Mean Corpuscular Hemoglobin 24.1 pg (27.0-31.2); Mean Corpuscular Volume 79.4 fl (81-99); Nucleated Red Blood Cells % 0 %; Platelet Count 238 K/mm3 (142-424); Red Blood Count 3.74 M/mm3 (4.20-5.40); Red Cell Distribution Width-SD 47.8 fL; White Blood Count 7.9 K/mm3 (4.8-10.8)
[2025-04-22 08:00] VITALS: BP 161/87; PULSE 79; RESP 16; O2SAT 99
[2025-04-22 08:06] LABS: Alanine Aminotransferase 32 U/L (12-78); Albumin Level 3.4 g/dl (3.5-5.0); Albumin/Globulin Ratio 1.2 (1.1-1.8); Alkaline Phosphatase 70 U/L (38-126); Anion Gap 12.2 mEq/L (5-15); Aspartate Amino Transferase 36 U/L (14-36); Blood Urea Nitrogen 8 mg/dl (7-17); Calcium 9.0 mg/dl (8.4-10.2); Carbon Dioxide 26 mmol/L (22.0-30.0); Chloride 105 mmol/L (98-107); Creatine Kinase 750 U/L (30-135); Creatinine Clearance Estimated 156 mL/min (50-200); Creatinine,Serum 0.50 mg/dl (0.52-1.04); Estimated Glomerular Filt Rate 130 ml/min (>60); GFR (African American) 157 ML/MIN (>60); Globulin 2.8 g/dL (1.3-3.2); Glucose 103 mg/dl (74-100); Magnesium 1.7 mg/dl (1.6-2.3); Potassium 4.2 mmoL/L (3.5-5.1); Sodium 139 mmol/L (136-145); Total Protein,Serum 6.2 g/dl (6.3-8.2)
[2025-04-22 08:07] LABS: Bilirubin,Total 0.1 mg/dl (0.2-1.3)
[2025-04-22] MEDS: MAGNESIUM SULFATE IN WATER 2 GM/50 ML PIGGYBACK IV ×2 (08:39→09:34)
[2025-04-22] MEDS: MUPIROCIN 2% OINTMENT 22GM TUBE TP (08:39)
[2025-04-22 12:00] VITALS: BP 138/76; PULSE 67; RESP 18; O2SAT 98
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
--- NOTE | 2025-04-23 10:41 | SW/DCPLANNER ---
Spoke with patient's son on the phone. Patient's son stated that his mother is doing well. Patient's son stated that they were able to get his mom some new hearing aids. Patient's son stated that he is fixing to get his mom from her sisters and take her back to her home where they are going to change the locks. Patient's son stated that they are aware of her upcoming appointment. Patient's son stated that they were able to get her new medicine picked up from clinic pharmacy. Jimy Aguilera
[2025-04-26 05:08] LABS: Mycoplasma genitalium, NAA Negative (Negative); Neisseria gonorrhoeae, NAA Negative (Negative)
== END 2025-04-22 18:00 | disposition home or self-care (01) | DRG 565 ==
LOC: ER 18:42 → 2ND 04-21 03:52
PROVIDERS: Nurse Practitioner Family; Admitting Provider Student in an Organized Health Care Education/Training Program; Emergency Provider Emergency Medicine; Visit Provider Student in an Organized Health Care Education/Training Program
DX: T79.6XXA Traumatic ischemia of muscle, initial encounter (principal); F15.20 Other stimulant dependence, uncomplicated; F33.1 Major depressive disorder, recurrent, moderate; N39.0 Urinary tract infection, site not specified; Z59.819 Housing instability, housed unspecified; E87.6 Hypokalemia; F41.1 Generalized anxiety disorder; F12.20 Cannabis dependence, uncomplicated; Y09 Assault by unspecified means; S00.31XA Abrasion of nose, initial encounter; S00.81XA Abrasion of other part of head, initial encounter; S76.112A Strain of left quadriceps muscle, fascia and tendon, initial encounter; D64.9 Anemia, unspecified; F17.200 Nicotine dependence, unspecified, uncomplicated; M54.9 Dorsalgia, unspecified; H91.90 Unspecified hearing loss, unspecified ear; Z59.82 Transportation insecurity; Z88.0 Allergy status to penicillin; Z59.41 Food insecurity; Y04.8XXA Assault by other bodily force, initial encounter
CPT/HCPCS: 36415; 70450; 70486; 71046; 72125; 72128; 72131; 72170; 73562; 73590; 80048; 80053; 80074; 80307; 80329; 81001; 82550; 83605; 83735; 85025; 87077; 87086; 87389; 87491; 87563; 87591; 87661; 97162; J0696; J1200; J1650; J1885; J3475; J3480; J7030; J7120

== ENCOUNTER 2025-06-29 16:01 | Emergency (ER) | payer MEDICAID, SELFPAY ==
[2025-06-29 16:02] VITALS: BP 166/79; PULSE 86; RESP 18; TEMP 37.1; O2SAT 99; BMI 30.2
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
[2025-06-29 16:33] VITALS: BP 154/70; PULSE 80; RESP 18; TEMP 36.7; O2SAT 99
== END 2025-06-29 16:35 | disposition home or self-care (01) ==
PROVIDERS: Emergency Provider Student in an Organized Health Care Education/Training Program
DX: T16.2XXA Foreign body in left ear, initial encounter (principal); W44.8XXA Other foreign body entering into or through a natural orifice, initial encounter
CPT/HCPCS: 69200; 99283

== ENCOUNTER 2025-07-04 17:04 | Emergency (ER) | payer MEDICAID, SELFPAY ==
[2025-07-04 17:21] VITALS: BP 187/103; PULSE 81; RESP 16; TEMP 36.7; O2SAT 100; BMI 30.2
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
[2025-07-04 17:35] VITALS: BP 180/98; PULSE 76; RESP 17; TEMP 36.7; O2SAT 98
== END 2025-07-04 17:40 | disposition home or self-care (01) ==
PROVIDERS: Emergency Provider Student in an Organized Health Care Education/Training Program
DX: T16.2XXA Foreign body in left ear, initial encounter (principal); W44.G1XA Audio device entering into or through a natural orifice, initial encounter
CPT/HCPCS: 69200; 99283